=== PATIENT | male | born 1955 | race Caucasian/White ===

== ENCOUNTER → 2017-05-28 | Outpatient (CLI) | payer BC ==
--- NOTE | 2017-05-28 10:01 | US ---
EXAMINATION TYPE: US carotid duplex BILAT DATE OF EXAM: 05/28/2017 COMPARISON: NONE CLINICAL HISTORY: R42 Dizziness. Dizziness and giddiness EXAM MEASUREMENTS: RIGHT: Peak Systolic Velocity (PSV) cm/sec ----- Right CCA: 89.2 ----- Right ICA: 100.5 ----- Right ECA: 103.1 ICA/CCA ratio: 1.1 RIGHT: End Diastole cm/sec ----- Right CCA: 36.1 ----- Right ICA: 47.5 ----- Right ECA: 22.2 LEFT: Peak Systolic Velocity (PSV) cm/sec ----- Left CCA: 101.8 ----- Left ICA: 72.2 ----- Left ECA: 67.8 ICA/CCA ratio: 0.7 LEFT: End Diastole cm/sec ----- Left CCA: 32.3 ----- Left ICA: 32.6 ----- Left ECA: 17.2 VERTEBRALS (direction of flow): Right Vertebral: Antegrade Left Vertebral: Antegrade Rhythm: Normal No elevated velocities, no significant stenosis. Grayscale images show no significant focal plaque. Velocity measurements and ratios in visualized por tion of both internal carotid arteries is felt within normal limits. IMPRESSION: No hemodynamically significant stenosis is seen in either internal carotid artery.
== END | disposition home or self-care (01) ==
LOC: RADUSMAIN 09:21
PROVIDERS: ATTEND Family Medicine
DX: R42 Dizziness and giddiness (principal); R94.31 Abnormal electrocardiogram [ECG] [EKG]
CPT/HCPCS: 93880

== ENCOUNTER → 2017-10-04 | Outpatient (CLI) | payer OTHER ==
--- NOTE | 2017-10-04 10:34 | XR ---
EXAMINATION TYPE: XR Hip Complete LT DATE OF EXAM: 10/04/2017 COMPARISON: NONE HISTORY: 61-year-old male with left hip strain after pushing TECHNIQUE: 2 views FINDINGS: There is minimal superolateral joint space narrowing. No acute fracture, subluxation, or dislocation. Some vague patchy sclerosis involving the greater trochanter may represent superimposition shadow. IMPRESSION: 1. No acute osseous abnormality seen. 2. Questionable patchy sclerosis versus superimposition artifact at the greater trochanter. Conservat arcelia 3 and 6 month follow-up exams are recommended to ensure stability of this region.
== END | disposition home or self-care (01) ==
LOC: RADXRMAIN 10:08
PROVIDERS: ATTEND Emergency Medicine
DX: S39.012D Strain of muscle, fascia and tendon of lower back, subsequent encounter (principal)
CPT/HCPCS: 73502

== ENCOUNTER 2018-03-25 19:18 | Emergency (ER) | payer BC, OTHER ==
--- NOTE | 2018-03-25 21:54 | ED ---
General Adult HPI - General Chief complaint: Extremity Injury, Lower Stated complaint: Leg Pain Time Seen by Provider: 03/25/18 21:18 Source: patient, RN notes reviewed Mode of arrival: ambulatory Limitations: no limitations - History of Present Illness Initial comments: 62-year-old male presents to the emergency department for a chief complaint of right lower extremity pain times one week. Patient states it has been hurting when he has walked on it. Patient denies any injury. Patient denies any history of DVT or clots. Patient is not on any blood thinners. Patient states his toes also feel somewhat numb. The patient denies pain in the hip or knee. Patient has not tried anything for pain. Patient has no other complaints at this time including shortness of breath, chest pain, abdominal pain, nausea or vomiting, headache, or visual changes. - Related Data Home Medications Medication Instructions Recorded Confirmed ALPRAZolam [Xanax] 0.25 mg PO Q8HR PRN 03/25/18 03/25/18 Hydrocodone/Acetaminophen [[place] 1 tab PO Q6H PRN 03/25/18 03/25/18 10-325] Allergies Allergy/AdvReac Type Severity Reaction Status Date / Time Penicillins Allergy Rash/Hives Verified 03/25/18 20:03 Review of Systems ROS Statement: Those systems with pertinent positive or pertinent negative responses have been documented in the HPI. ROS Other: All systems not noted in ROS Statement are negative. Past Medical History Additional Past Medical History / Comment(s): back pain History of Any Multi-Drug Resistant Organisms: None Reported Past Surgical History: No Surgical Hx Reported Past Psychological History: Anxiety Smoking Status: Never smoker Past Alcohol Use History: None Reported Past Drug Use History: None Reported General Exam Limitations: no limitations General appearance: alert, in no apparent distress Head exam: Present: atraumatic, normocephalic, normal inspection Eye exam: Present: normal appearance. Absent: scleral icterus, conjunctival injection ENT exam: Present: normal exam, mucous membranes moist Neck exam: Present: normal inspection, full ROM. Absent: tenderness, meningismus, lymphadenopathy Respiratory exam: Present: normal lung sounds bilaterally. Absent: respiratory distress, wheezes, rales, rhonchi, stridor Cardiovascular Exam: Present: regular rate, normal rhythm, normal heart sounds. Absent: systolic murmur, diastolic murmur, rubs, gallop, clicks Extremities exam: Present: full ROM (Full range of motion of the left lower extremity including the toes ankle and knee joint), tenderness (Tenderness to the calf over what appears to be of a varicose vein about once an meter by 1 cm. ), normal capillary refill (Capillary refill less than 2 seconds and pedal pulse 2+ in lower extremities bilaterally), calf tenderness (Tenderness over the 1 cm x 1 cm fluctuant raised area that is likely a varicose vein. No erythema, swelling, or increased warmth in the right calf.). Absent: pedal edema, joint swelling Neurological exam: Present: alert, oriented X3, CN II-XII intact Psychiatric exam: Present: normal affect, normal mood Course Vital Signs 03/25/18 20:00 Temperature 98.6 F Pulse Rate 60 Respiratory 20 Rate Blood Pressure 132/56 O2 Sat by Pulse 97 Oximetry Medical Decision Making - Medical Decision Making 62-year-old male presents to the emergency department for a chief complaint of right calf pain times one week. Patient states it is painful to walk on. Patient states his toes are somewhat numb. Patient denies pain in the right hip. Neurovascular intact in the right lower extremity. Right leg negative for DVT on ultrasound. X-ray of the tib-fib shows no fracture or dislocation. Patient is ambulatory in the emergency department. Patient may have a varicose vein that is palpated. Patient will follow up with primary care in 1-2 days. He will return to the emergency department if he has any worsening symptoms. He will take Motrin or Tylenol for pain. Disposition Clinical Impression: Leg pain, left, Varicose vein of leg Disposition: HOME SELF-CARE Condition: Good Additional Instructions: Please take Motrin and Tylenol for pain. Please follow-up with primary care in 1-2 days. If you have any worsening symptoms, be sure to return to the emergency department. Is patient prescribed a controlled substance at d/c from ED?: No Referrals: Abraham Younger MD [Primary Care Provider] - 1-2 days Time of Disposition: 23:43
--- NOTE | 2018-03-25 22:22 | US ---
EXAMINATION TYPE: US venous doppler duplex LE RT DATE OF EXAM: 03/25/2018 9:31 PM COMPARISON: NONE CLINICAL HISTORY: Pain. right calf pain SIDE PERFORMED: Right TECHNIQUE: The lower extremity deep venous system is examined utilizing real time linear array sonog dario with graded compression, doppler sonography and color-flow sonography. VESSELS IMAGED: External Iliac Vein (EIV) Common Femoral Vein Deep Femoral Vein Greater Saphenous Vein * Femoral Vein Popliteal Vein Proximal Calf Veins (* superficial vessels) Right Leg: Negative for DVT IMPRESSION: Normal exam. No evidence of deep venous thrombosis in the right leg.
--- NOTE | 2018-03-25 23:08 | XR ---
EXAMINATION TYPE: XR tibia fibula RT DATE OF EXAM: 03/25/2018 COMPARISON: NONE HISTORY: Pain TECHNIQUE: 4 views FINDINGS: The tibia and fibula appear intact. Knee joint and ankle joint appear intact. I see no frac ture. IMPRESSION: Negative right tibia and fibula exam.
[2018-03-26] VITALS: BP 127/80; PULSE 50; RESP 19; TEMP 97.1
== END 2018-03-25 23:59 | disposition home or self-care (01) ==
LOC: EC 19:18
DX: I83.811 Varicose veins of right lower extremity with pain (principal); I83.891 Varicose veins of right lower extremity with other complications; Z88.0 Allergy status to penicillin
CPT/HCPCS: 99284

== ENCOUNTER 2020-10-22 09:14 | Emergency (ER) | payer BC, OTHER ==
[2020-10-22 09:26] VITALS: RESP 18
[2020-10-22] MEDS ORDERED: METOCLOPRAMIDE 5 MG/ML 2 ML VIAL IVP STA (10:04)
[2020-10-22] MEDS ORDERED: ACETAMINOPHEN TAB 325 MG TAB PO STA (10:04)
[2020-10-22] MEDS ORDERED: SODIUM CHLORIDE 0.9% 1,000 ML IV STA (10:04)
--- NOTE | 2020-10-22 10:09 | ED ---
General Adult HPI - General Chief complaint: Headache Stated complaint: Headache Time Seen by Provider: 10/22/20 09:45 Source: patient, family, RN notes reviewed Mode of arrival: ambulatory Limitations: no limitations - History of Present Illness Initial comments: Patient is a pleasant 64-year-old male presenting to the emergency Department with complaints of headache. Symptoms have been waxing and waning over the past several days. Patient did have temperature up to 100. Patient also has some mild discomfort of his neck. Headache is mostly left-sided. Patient has had some intermittent symptoms over the past year since striking his head at that time. No vomiting. No weakness or confusion. Patient has some discomfort of his left ear as well. - Related Data Home Medications Medication Instructions Recorded Confirmed Hydrocodone/Acetaminophen [[place] 1 tab PO TID PRN 03/25/18 10/22/20 10-325] ALPRAZolam [Xanax] 0.5 mg PO BID PRN 10/22/20 10/22/20 Omeprazole 20 mg PO DAILY PRN 10/22/20 10/22/20 Ondansetron Odt [Zofran Odt] 8 mg PO Q8HR PRN 10/22/20 10/22/20 diazePAM [Valium] 2.5 mg PO DAILY PRN 10/22/20 10/22/20 Allergies Allergy/AdvReac Type Severity Reaction Status Date / Time Penicillins Allergy Rash/Hives Verified 10/22/20 10:13 Review of Systems ROS Statement: Those systems with pertinent positive or pertinent negative responses have been documented in the HPI. ROS Other: All systems not noted in ROS Statement are negative. Constitutional: Reports: as per HPI Eyes: Denies: eye pain ENT: Reports: as per HPI, ear pain Respiratory: Denies: cough Cardiovascular: Denies: chest pain Endocrine: Denies: fatigue Gastrointestinal: Denies: abdominal pain Genitourinary: Denies: dysuria Musculoskeletal: Denies: back pain Skin: Denies: rash Neurological: Reports: as per HPI, headache. Denies: weakness Past Medical History Additional Past Medical History / Comment(s): back pain History of Any Multi-Drug Resistant Organisms: None Reported Past Surgical History: No Surgical Hx Reported Past Psychological History: Anxiety Smoking Status: Never smoker Past Alcohol Use History: None Reported Past Drug Use History: None Reported General Exam Limitations: no limitations General appearance: alert, in no apparent distress Head exam: Present: atraumatic, normocephalic, other (No tenderness over the temporal artery) Eye exam: Present: normal appearance, PERRL, EOMI. Absent: nystagmus ENT exam: Present: normal oropharynx Neck exam: Present: normal inspection. Absent: tenderness, meningismus Respiratory exam: Present: normal lung sounds bilaterally Cardiovascular Exam: Present: regular rate, normal rhythm GI/Abdominal exam: Present: soft. Absent: tenderness Extremities exam: Present: normal inspection Neurological exam: Present: alert, CN II-XII intact. Absent: motor sensory deficit Expanded Neurological exam: Present: protecting the airway Speech: Present: fluid speech Cranial nerves: EOM's Intact: Normal, Facial Sensation: Normal Sensory exam: Upper Extremity Light Touch: Normal, Lower Extremity Light Touch: Normal Motor strength exam: RUE: 5, LUE: 5, RLE: 5, LLE: 5 Eye Response: (4) open spontaneously Motor Response: (6) obeys commands Verbal Response: (5) oriented Psychiatric exam: Present: normal affect, normal mood Skin exam: Present: normal color Course Vital Signs 10/22/20 10/22/20 09:22 11:11 Temperature 97.6 F 97.3 F L Pulse Rate 77 66 Respiratory 18 18 Rate Blood Pressure 125/82 102/77 O2 Sat by Pulse 97 100 Oximetry Medical Decision Making - Medical Decision Making Patient reevaluated and improved. Patient updated on results. Patient is felt to be low suspicion for meningitis clinically however with complaints was offered lumbar puncture to further evaluate this. Patient refuses. Family is present. Patient states he was just prescribed Keflex yesterday however has not had this filled yet. Patient does have sinus complaints. Secondary to just being prescribed antibiotics yesterday for the prescription will be held at this time and patient is advised to have that prescription filled today and take that medication. Also advised follow-up and return if worsened symptoms or - Lab Data Result diagrams: 10/22/20 10:16 10/22/20 10:16 Lab Results 10/22/20 10/22/20 10/22/20 Range/Units 10:13 10:16 10:16 WBC 8.6 (3.8-10.6) k/uL RBC 5.25 (4.30-5.90) m/uL Hgb 16.2 (13.0-17.5) gm/dL Hct 47.5 (39.0-53.0) % MCV 90.5 (80.0-100.0) fL MCH 30.9 (25.0-35.0) pg MCHC 34.2 (31.0-37.0) g/dL RDW 12.7 (11.5-15.5) % Plt Count 205 (150-450) k/uL MPV 7.3 Neutrophils % 63 % Lymphocytes % 28 % Monocytes % 5 % Eosinophils % 1 % Basophils % 1 % Neutrophils # 5.4 (1.3-7.7) k/uL Lymphocytes # 2.4 (1.0-4.8) k/uL Monocytes # 0.5 (0-1.0) k/uL Eosinophils # 0.1 (0-0.7) k/uL Basophils # 0.1 (0-0.2) k/uL PT 10.2 (9.0-12.0) sec INR 0.9 (<1.2) APTT 22.6 (22.0-30.0) sec Sodium (137-145) mmol/L Potassium (3.5-5.1) mmol/L Chloride (98-107) mmol/L Carbon Dioxide (22-30) mmol/L Anion Gap mmol/L BUN (9-20) mg/dL Creatinine (0.66-1.25) mg/dL Est GFR (CKD-EPI)AfAm (>60 ml/min/1.73 sqM) Est GFR (CKD-EPI)NonAf (>60 ml/min/1.73 sqM) Glucose (74-99) mg/dL Calcium (8.4-10.2) mg/dL Total Bilirubin (0.2-1.3) mg/dL AST (17-59) U/L ALT (4-49) U/L Alkaline Phosphatase (38-126) U/L Total Protein (6.3-8.2) g/dL Albumin (3.5-5.0) g/dL Urine Color Light Yellow Urine Appearance Clear (Clear) Urine pH 5.5 (5.0-8.0) Ur Specific [place] 1.008 (1.001-1.035) Urine Protein Negative (Negative) Urine Glucose (UA) Negative (Negative) Urine Ketones Negative (Negative) Urine Blood Negative (Negative) Urine Nitrite Negative (Negative) Urine Bilirubin Negative (Negative) Urine Urobilinogen <2.0 (<2.0) mg/dL Ur Leukocyte Esterase Negative (Negative) Coronavirus (PCR) (Not Detectd) 10/22/20 10/22/20 Range/Units 10:16 10:21 WBC (3.8-10.6) k/uL RBC (4.30-5.90) m/uL Hgb (13.0-17.5) gm/dL Hct (39.0-53.0) % MCV (80.0-100.0) fL MCH (25.0-35.0) pg MCHC (31.0-37.0) g/dL RDW (11.5-15.5) % Plt Count (150-450) k/uL MPV Neutrophils % % Lymphocytes % % Monocytes % % Eosinophils % % Basophils % % Neutrophils # (1.3-7.7) k/uL Lymphocytes # (1.0-4.8) k/uL Monocytes # (0-1.0) k/uL Eosinophils # (0-0.7) k/uL Basophils # (0-0.2) k/uL PT (9.0-12.0) sec INR (<1.2) APTT (22.0-30.0) sec Sodium 139 (137-145) mmol/L Potassium 4.4 (3.5-5.1) mmol/L Chloride 101 (98-107) mmol/L Carbon Dioxide 30 (22-30) mmol/L Anion Gap 8 mmol/L BUN 12 (9-20) mg/dL Creatinine 0.74 (0.66-1.25) mg/dL Est GFR (CKD-EPI)AfAm >90 (>60 ml/min/1.73 sqM) Est GFR (CKD-EPI)NonAf >90 (>60 ml/min/1.73 sqM) Glucose 101 H (74-99) mg/dL Calcium 9.4 (8.4-10.2) mg/dL Total Bilirubin 0.6 (0.2-1.3) mg/dL AST 23 (17-59) U/L ALT 22 (4-49) U/L Alkaline Phosphatase 39 (38-126) U/L Total Protein 7.4 (6.3-8.2) g/dL Albumin 4.5 (3.5-5.0) g/dL Urine Color Urine Appearance (Clear) Urine pH (5.0-8.0) Ur Specific [place] (1.001-1.035) Urine Protein (Negative) Urine Glucose (UA) (Negative) Urine Ketones (Negative) Urine Blood (Negative) Urine Nitrite (Negative) Urine Bilirubin (Negative) Urine Urobilinogen (<2.0) mg/dL Ur Leukocyte Esterase (Negative) Coronavirus (PCR) Not Detected (Not Detectd) - Radiology Data Radiology results: report reviewed (Computed tomography scan of the brain reveals no acute process. There is ethmoid sinus disease) Disposition Clinical Impression: Headache Disposition: HOME SELF-CARE Condition: Stable Instructions (If sedation given, give patient instructions): Acute Headache (ED) Additional Instructions: Please do follow-up with your primary care physician in the next day or 2 for recheck. Return for fevers, increased pain, neck pain, confusion, weakness, worsening or change in symptoms or any other concerns. Start antibiotics today. Is patient prescribed a controlled substance at d/c from ED?: No Referrals: Abraham Younger MD [Primary Care Provider] - 1-2 days Time of Disposition: 11:23
[2020-10-22 10:38] LABS: Appearance,Urine Clear (Clear); Bilirubin,Urine Negative (Negative); Blood,Urine Negative (Negative); Color,Urine Light Yellow; Glucose,Urine (UA) Negative (Negative); Ketones,Urine Negative (Negative); Leukocyte Esterase,Urine Negative (Negative); Nitrite,Urine Negative (Negative); PH, Urine 5.5 (5.0-8.0); Protein,Urine Negative (Negative); Specific Gravity,Urine 1.008 (1.001-1.035); Urobilinogen,Urine <2.0 mg/dL (<2.0)
[2020-10-22 10:50] LABS: INR 0.9 (<1.2); Partial Thromboplastin Time 22.6 sec (22.0-30.0); Prothrombin Time 10.2 sec (9.0-12.0)
[2020-10-22 10:51] LABS: ALT 22 U/L (4-49); AST 23 U/L (17-59); African American GFR (CKD) >90 (>60 ml/min/1.73 sqM); Albumin 4.5 g/dL (3.5-5.0); Alkaline Phosphatase 39 U/L (38-126); Anion Gap 8 mmol/L; Blood Urea Nitrogen 12 mg/dL (9-20); Calcium 9.4 mg/dL (8.4-10.2); Carbon Dioxide 30 mmol/L (22-30); Chloride 101 mmol/L (98-107); Glucose 101 mg/dL (74-99); Non-African American GFR(CKD) >90 (>60 ml/min/1.73 sqM); Potassium 4.4 mmol/L (3.5-5.1); Sodium 139 mmol/L (137-145); Total Bilirubin 0.6 mg/dL (0.2-1.3); Total Protein 7.4 g/dL (6.3-8.2)
--- NOTE | 2020-10-22 11:08 | CT ---
EXAMINATION TYPE: CT brain wo con DATE OF EXAM: 10/22/2020 COMPARISON: None HISTORY: 64-year-old male headache TECHNIQUE: Examination was done in axial plane without intravenous contrast. Coronal and sagittal r econstructions performed. CT DLP: 1121.4 mGycm Automated exposure control for dose reduction was used. FINDINGS: There is no evidence of acute intracranial hemorrhage, acute ischemic changes, mass, mass-effect, or extra-axial fluid collection. There is no effacement of cerebral sulci or basal subarachnoid cister ns. There is no hydrocephalus. There is no midline shift. Moreno-white matter distinction is preserv ed. Moderate mucosal thickening within the ethmoid air cells. Orbits and globes are intact. Mastoid air c ells well pneumatized. IMPRESSION: Moderate chronic ethmoid sinus disease. No acute intracranial abnormality seen.
[2020-10-22 11:11] LABS: Basophils # (A) 0.1 k/uL (0-0.2); Basophils % (A) 1 %; Eosinophils # (A) 0.1 k/uL (0-0.7); Eosinophils % (A) 1 %; HCT 47.5 % (39.0-53.0); HGB 16.2 gm/dL (13.0-17.5); Lymphocytes # (A) 2.4 k/uL (1.0-4.8); Lymphocytes % (A) 28 %; MCH 30.9 pg (25.0-35.0); MCHC 34.2 g/dL (31.0-37.0); MCV 90.5 fL (80.0-100.0); Mean Platelet Volume 7.3; Monocytes # (A) 0.5 k/uL (0-1.0); Monocytes % (A) 5 %; Neutrophils # (A) 5.4 k/uL (1.3-7.7); Neutrophils % (A) 63 %; Platelet Count 205 k/uL (150-450); RBC 5.25 m/uL (4.30-5.90); RDW 12.7 % (11.5-15.5); WBC 8.6 k/uL (3.8-10.6)
[2020-10-22 11:14] VITALS: BP 102/77; PULSE 66; TEMP 97.3
== END 2020-10-22 11:32 | disposition home or self-care (01) ==
LOC: EC 09:14
DX: R51.9 Headache, unspecified (principal); F41.9 Anxiety disorder, unspecified
CPT/HCPCS: 36415; 80053; 85025; 85610; 85730; 81003; 87635; 70450; 99284; 96374; 96361; J2765

== ENCOUNTER 2021-04-07 09:55 | Emergency (ER) | payer BC, OTHER ==
[2021-04-07 10:07] VITALS: BP 128/79; PULSE 76; RESP 18; TEMP 97.8
[2021-04-07] MEDS ORDERED: SODIUM CHLORIDE 0.9% 1,000 ML IV STA (10:20)
[2021-04-07 11:41] LABS: Appearance,Urine Clear (Clear); Basophils # (A) 0.1 k/uL (0-0.2); Basophils % (A) 1 %; Bilirubin,Urine Negative (Negative); Blood,Urine Negative (Negative); Color,Urine Light Yellow; Eosinophils # (A) 0.2 k/uL (0-0.7); Eosinophils % (A) 3 %; Glucose,Urine (UA) Negative (Negative); HCT 47.9 % (39.0-53.0); Ketones,Urine Negative (Negative); Leukocyte Esterase,Urine Negative (Negative); Lymphocytes # (A) 2.1 k/uL (1.0-4.8); Lymphocytes % (A) 33 %; MCH 30.8 pg (25.0-35.0); MCHC 33.3 g/dL (31.0-37.0); MCV 92.4 fL (80.0-100.0); Mean Platelet Volume 7.2; Monocytes # (A) 0.4 k/uL (0-1.0); Monocytes % (A) 5 %; Neutrophils # (A) 3.6 k/uL (1.3-7.7); Neutrophils % (A) 56 %; Nitrite,Urine Negative (Negative); PH, Urine 6.5 (5.0-8.0); Platelet Count 202 k/uL (150-450); Protein,Urine Negative (Negative); RBC 5.18 m/uL (4.30-5.90); RDW 13.4 % (11.5-15.5); Specific Gravity,Urine 1.005 (1.001-1.035); Urobilinogen,Urine <2.0 mg/dL (<2.0); WBC 6.5 k/uL (3.8-10.6)
[2021-04-07 11:51] LABS: ALT 17 U/L (4-49); AST 24 U/L (17-59); African American GFR (CKD) >90 (>60 ml/min/1.73 sqM); Alkaline Phosphatase 43 U/L (38-126); Anion Gap 7 mmol/L; Blood Urea Nitrogen 14 mg/dL (9-20); Calcium 9.4 mg/dL (8.4-10.2); Carbon Dioxide 28 mmol/L (22-30); Chloride 105 mmol/L (98-107); Glucose 93 mg/dL (74-99); Magnesium 2.1 mg/dL (1.6-2.3); Non-African American GFR(CKD) >90 (>60 ml/min/1.73 sqM); Potassium 4.5 mmol/L (3.5-5.1); Sodium 140 mmol/L (137-145); Total Bilirubin 0.2 mg/dL (0.2-1.3); Total Protein 6.5 g/dL (6.3-8.2)
--- NOTE | 2021-04-07 11:55 | XR ---
EXAMINATION TYPE: XR chest 2V DATE OF EXAM: 04/07/2021 COMPARISON: NONE HISTORY: Shortness of breath TECHNIQUE: Frontal and lateral views of the chest are obtained. FINDINGS: Scattered senescent parenchymal changes noted. Hyperinflation compatible with COPD. No evidence for infiltrate. No evidence for atelectasis. Heart size is stable. Mediastinal structures are stable and grossly unremarkable. No evidence for hilar prominence. Degenerative changes dorsal spine. IMPRESSION: 1. No evidence for acute pulmonary disease.
--- NOTE | 2021-04-07 12:09 | ED ---
General Adult HPI - General Chief complaint: Weakness Stated complaint: Dehydration Time Seen by Provider: 04/07/21 10:10 Source: patient, RN notes reviewed Mode of arrival: ambulatory Limitations: no limitations - History of Present Illness Initial comments: Patient is a 65-year-old male that presents to emergency, complaining of generalized weakness. He notes that he was diagnosed with heat stroke last week by his primary care. He was informed that things don't get better in approximately a week to come emergency room to get evaluated and/or IV fluids. Patient states it is minimally down but it just feels more lethargic and tired. He denied any pain or injury. He was otherwise a well-appearing 65-year-old male. He denied any chest pain shortness of breath headache nausea vomiting diarrhea constipation fever fatigue chills. - Related Data Home Medications Medication Instructions Recorded Confirmed Hydrocodone/Acetaminophen [[place] 1 tab PO TID PRN 03/25/18 04/07/21 10-325] ALPRAZolam [Xanax] 0.5 mg PO BID PRN 10/22/20 04/07/21 Ondansetron Odt [Zofran Odt] 8 mg PO Q8HR PRN 10/22/20 04/07/21 Acyclovir [Zovirax] 800 mg PO 5XD 04/07/21 04/07/21 Diazepam [Valium] 5 mg PO HS PRN 04/07/21 04/07/21 Ergocalciferol (Vitamin D2) 1,250 mcg PO WEEKLY 04/07/21 04/07/21 [Drisdol (50,000 Iu)] Omeprazole [PriLOSEC] 40 mg PO DAILY 04/07/21 04/07/21 Ztlido 1.8% Patch 1 patch TOPICAL DAILY PRN 04/07/21 04/07/21 Allergies Allergy/AdvReac Type Severity Reaction Status Date / Time Penicillins Allergy Rash/Hives Verified 04/07/21 11:20 Review of Systems ROS Statement: Those systems with pertinent positive or pertinent negative responses have been documented in the HPI. ROS Other: All systems not noted in ROS Statement are negative. Past Medical History Additional Past Medical History / Comment(s): back pain History of Any Multi-Drug Resistant Organisms: None Reported Past Surgical History: No Surgical Hx Reported Past Psychological History: Anxiety Smoking Status: Never smoker Past Alcohol Use History: None Reported Past Drug Use History: None Reported General Exam Limitations: no limitations General appearance: alert, in no apparent distress Head exam: Present: atraumatic, normocephalic, normal inspection Eye exam: Present: normal appearance, PERRL, EOMI. Absent: scleral icterus, conjunctival injection, periorbital swelling Neck exam: Present: normal inspection Respiratory exam: Present: normal lung sounds bilaterally. Absent: respiratory distress, wheezes, rales, rhonchi, stridor Cardiovascular Exam: Present: regular rate, normal rhythm, normal heart sounds. Absent: systolic murmur, diastolic murmur, rubs, gallop, clicks GI/Abdominal exam: Present: soft, normal bowel sounds. Absent: distended, tenderness, guarding, rebound, rigid Extremities exam: Present: normal inspection, full ROM, normal capillary refill. Absent: tenderness, pedal edema, joint swelling, calf tenderness Neurological exam: Present: alert, oriented X3 Psychiatric exam: Present: normal affect, normal mood Skin exam: Present: warm, dry, intact, normal color. Absent: rash Course Vital Signs 04/07/21 10:03 Temperature 97.8 F Pulse Rate 76 Respiratory 18 Rate Blood Pressure 128/79 O2 Sat by Pulse 98 Oximetry EKG Findings - EKG Comments: EKG Findings:: Ventricular rate 62 bpm, MA interval 180 ms, QRS duration 96 ms, QTC 391 ms, PRT axes 48/32/39. Normal sinus rhythm with sinus arrhythmia. Normal ECG. Medical Decision Making - Medical Decision Making 65-year-old male complaining of generalized weakness after being diagnosed heat stroke approximately 1 week ago. Saying that he does not feel he is improving much. Labs, chest x-ray, EKG, teletypesetter monitor, 1 L normal saline ordered. Labs unremarkable. EKG within normal limits. Chest x-ray negative for any acute process. Case discussed with Dr. Strickland, patient can discharge home. - Lab Data Result diagrams: 04/07/21 11:27 04/07/21 11:27 Lab Results 04/07/21 04/07/21 04/07/21 Range/Units 11:27 11:27 11:27 WBC 6.5 (3.8-10.6) k/uL RBC 5.18 (4.30-5.90) m/uL Hgb 16.0 (13.0-17.5) gm/dL Hct 47.9 (39.0-53.0) % MCV 92.4 (80.0-100.0) fL MCH 30.8 (25.0-35.0) pg MCHC 33.3 (31.0-37.0) g/dL RDW 13.4 (11.5-15.5) % Plt Count 202 (150-450) k/uL MPV 7.2 Neutrophils % 56 % Lymphocytes % 33 % Monocytes % 5 % Eosinophils % 3 % Basophils % 1 % Neutrophils # 3.6 (1.3-7.7) k/uL Lymphocytes # 2.1 (1.0-4.8) k/uL Monocytes # 0.4 (0-1.0) k/uL Eosinophils # 0.2 (0-0.7) k/uL Basophils # 0.1 (0-0.2) k/uL PT 9.9 (9.0-12.0) sec INR 0.9 (<1.2) APTT 22.5 (22.0-30.0) sec Sodium (137-145) mmol/L Potassium (3.5-5.1) mmol/L Chloride (98-107) mmol/L Carbon Dioxide (22-30) mmol/L Anion Gap mmol/L BUN (9-20) mg/dL Creatinine (0.66-1.25) mg/dL Est GFR (CKD-EPI)AfAm (>60 ml/min/1.73 sqM) Est GFR (CKD-EPI)NonAf (>60 ml/min/1.73 sqM) Glucose (74-99) mg/dL Plasma Lactic Acid Rip (0.7-2.0) mmol/L Calcium (8.4-10.2) mg/dL Magnesium (1.6-2.3) mg/dL Total Bilirubin (0.2-1.3) mg/dL AST (17-59) U/L ALT (4-49) U/L Alkaline Phosphatase (38-126) U/L Troponin I (0.000-0.034) ng/mL Total Protein (6.3-8.2) g/dL Albumin (3.5-5.0) g/dL Urine Color Light Yellow Urine Appearance Clear (Clear) Urine pH 6.5 (5.0-8.0) Ur Specific [place] 1.005 (1.001-1.035) Urine Protein Negative (Negative) Urine Glucose (UA) Negative (Negative) Urine Ketones Negative (Negative) Urine Blood Negative (Negative) Urine Nitrite Negative (Negative) Urine Bilirubin Negative (Negative) Urine Urobilinogen <2.0 (<2.0) mg/dL Ur Leukocyte Esterase Negative (Negative) 04/07/21 04/07/21 04/07/21 Range/Units 11:27 11:27 11:27 WBC (3.8-10.6) k/uL RBC (4.30-5.90) m/uL Hgb (13.0-17.5) gm/dL Hct (39.0-53.0) % MCV (80.0-100.0) fL MCH (25.0-35.0) pg MCHC (31.0-37.0) g/dL RDW (11.5-15.5) % Plt Count (150-450) k/uL MPV Neutrophils % % Lymphocytes % % Monocytes % % Eosinophils % % Basophils % % Neutrophils # (1.3-7.7) k/uL Lymphocytes # (1.0-4.8) k/uL Monocytes # (0-1.0) k/uL Eosinophils # (0-0.7) k/uL Basophils # (0-0.2) k/uL PT (9.0-12.0) sec INR (<1.2) APTT (22.0-30.0) sec Sodium 140 (137-145) mmol/L Potassium 4.5 (3.5-5.1) mmol/L Chloride 105 (98-107) mmol/L Carbon Dioxide 28 (22-30) mmol/L Anion Gap 7 mmol/L BUN 14 (9-20) mg/dL Creatinine 0.70 (0.66-1.25) mg/dL Est GFR (CKD-EPI)AfAm >90 (>60 ml/min/1.73 sqM) Est GFR (CKD-EPI)NonAf >90 (>60 ml/min/1.73 sqM) Glucose 93 (74-99) mg/dL Plasma Lactic Acid Rip 1.1 (0.7-2.0) mmol/L Calcium 9.4 (8.4-10.2) mg/dL Magnesium 2.1 (1.6-2.3) mg/dL Total Bilirubin 0.2 (0.2-1.3) mg/dL AST 24 (17-59) U/L ALT 17 (4-49) U/L Alkaline Phosphatase 43 (38-126) U/L Troponin I <0.012 (0.000-0.034) ng/mL Total Protein 6.5 (6.3-8.2) g/dL Albumin 4.0 (3.5-5.0) g/dL Urine Color Urine Appearance (Clear) Urine pH (5.0-8.0) Ur Specific [place] (1.001-1.035) Urine Protein (Negative) Urine Glucose (UA) (Negative) Urine Ketones (Negative) Urine Blood (Negative) Urine Nitrite (Negative) Urine Bilirubin (Negative) Urine Urobilinogen (<2.0) mg/dL Ur Leukocyte Esterase (Negative) - EKG Data -: EKG Interpreted by Ca EKG shows normal: sinus rhythm Rate: normal EKG Comments: Ventricular rate 62 bpm, MA interval 180 ms, QRS duration 96 ms, QTC 391 ms, PRT axes 48/32/39. Normal sinus rhythm with sinus arrhythmia. Normal ECG. - Radiology Data Radiology results: report reviewed, image reviewed Chest x-ray: No evidence for acute pulmonary disease. Disposition Clinical Impression: Weakness, Dehydration Disposition: HOME SELF-CARE Condition: Stable Instructions (If sedation given, give patient instructions): Dehydration (ED) Additional Instructions: Please return to the Emergency Department if symptoms worsen or any other concerns. Follow-up with primary care in 1-2 days. Increase oral fluids. Get plenty rest. Is patient prescribed a controlled substance at d/c from ED?: No Referrals: Abraham Younger MD [Primary Care Provider] - 1-2 days Time of Disposition: 12:42
[2021-04-07 12:19] LABS: INR 0.9 (<1.2); Partial Thromboplastin Time 22.5 sec (22.0-30.0); Prothrombin Time 9.9 sec (9.0-12.0)
== END 2021-04-07 13:06 | disposition home or self-care (01) ==
LOC: EC 09:55
DX: R53.1 Weakness (principal); E86.0 Dehydration; R53.83 Other fatigue; Z88.0 Allergy status to penicillin
CPT/HCPCS: 36415; 71046; 80053; 81003; 83605; 83735; 84484; 85025; 85610; 85730; 93005; 96360; 99285

== ENCOUNTER → 2021-04-25 | Outpatient (CLI) | payer BC, OTHER ==
--- NOTE | 2021-04-25 11:32 | US ---
EXAMINATION TYPE: US venous doppler duplex LE RT DATE OF EXAM: 04/25/2021 10:57 AM COMPARISON: NONE CLINICAL HISTORY: R60.0 LOCALIZED EDEMA. pain and edema right leg SIDE PERFORMED: right TECHNIQUE: The lower extremity deep venous system is examined utilizing real time linear array sonog dario with graded compression, doppler sonography and color-flow sonography. VESSELS IMAGED: Common Femoral Vein Deep Femoral Vein Greater Saphenous Vein * Femoral Vein Popliteal Vein Small Saphenous Vein * Proximal Calf Veins (* superficial vessels) Right Leg: no evidence of DVT IMPRESSION: 1. Right lower extremity ultrasound negative for deep venous thrombosis.
== END | disposition home or self-care (01) ==
LOC: RADUSWWP 10:06
PROVIDERS: ATTEND Family Medicine
DX: M79.604 Pain in right leg (principal); R60.0 Localized edema

== ENCOUNTER 2022-05-28 05:58 | Emergency (ER) | payer BC, OTHER ==
[2022-05-28 06:02] VITALS: TEMP 98
[2022-05-28] MEDS ORDERED: METOCLOPRAMIDE 5 MG/ML 2 ML VIAL IVP STA (06:09)
[2022-05-28] MEDS ORDERED: SODIUM CHLORIDE 0.9% 500 ML 500 ML IV STA (06:09)
[2022-05-28] MEDS ORDERED: SODIUM CHLORIDE 0.9% 1,000 ML IV STA (06:09)
[2022-05-28 06:38] LABS: Appearance,Urine Clear (Clear); Basophils % (A) 1 %; Bilirubin,Urine Negative (Negative); Blood,Urine Negative (Negative); Color,Urine Yellow; Eosinophils # (A) 0.1 k/uL (0-0.7); Eosinophils % (A) 1 %; Glucose,Urine (UA) Negative (Negative); HCT 45.3 % (39.0-53.0); HGB 15.1 gm/dL (13.0-17.5); Ketones,Urine 1+ (Negative); Leukocyte Esterase,Urine Negative (Negative); Lymphocytes # (A) 1.7 k/uL (1.0-4.8); Lymphocytes % (A) 21 %; MCH 29.5 pg (25.0-35.0); MCHC 33.2 g/dL (31.0-37.0); MCV 88.7 fL (80.0-100.0); Mean Platelet Volume 7.8; Monocytes # (A) 0.5 k/uL (0-1.0); Monocytes % (A) 6 %; Neutrophils # (A) 5.9 k/uL (1.3-7.7); Neutrophils % (A) 71 %; Nitrite,Urine Negative (Negative); Platelet Count 221 k/uL (150-450); Protein,Urine Trace (Negative); RBC 5.11 m/uL (4.30-5.90); RDW 12.7 % (11.5-15.5); Urobilinogen,Urine <2.0 mg/dL (<2.0); WBC 8.3 k/uL (3.8-10.6)
[2022-05-28] MEDS ORDERED: diphenhydrAMINE 50 MG/ML 1 ML VIAL IVP STA (06:41)
[2022-05-28] MEDS ORDERED: KETOROLAC 15 MG/ML 1 ML VIAL IVP STA (06:41)
[2022-05-28 06:49] LABS: ALT 22 U/L (4-49); AST 26 U/L (17-59); African American GFR (CKD) >90 (>60 ml/min/1.73 sqM); Albumin 4.6 g/dL (3.5-5.0); Alkaline Phosphatase 64 U/L (38-126); Anion Gap 12 mmol/L; Blood Urea Nitrogen 11 mg/dL (9-20); Calcium 9.1 mg/dL (8.4-10.2); Carbon Dioxide 23 mmol/L (22-30); Chloride 102 mmol/L (98-107); Glucose 134 mg/dL (74-99); Lipase 80 U/L (23-300); Non-African American GFR(CKD) >90 (>60 ml/min/1.73 sqM); Potassium 3.7 mmol/L (3.5-5.1); Sodium 137 mmol/L (137-145); Total Bilirubin 0.9 mg/dL (0.2-1.3)
--- NOTE | 2022-05-28 06:58 | XR ---
EXAMINATION TYPE: XR KUB DATE OF EXAM: 05/28/2022 COMPARISON: CT abdomen pelvis 12/09/2012. HISTORY: Pain, consultation TECHNIQUE: Single upright KUB view of the abdomen is obtained with 2 radiographs. FINDINGS: Small bowel demonstrates no evidence for dilatation or air fluid levels. Moderate amount of gas and fecal material demonstrated within the colon. No convincing evidence for pneumoperitoneum. No unusual calcifications. The lung bases are clear. The osseous structures are intact. IMPRESSION: Overall nonobstructive bowel gas pattern with moderate colonic stool burden.
[2022-05-28 07:50] VITALS: PULSE 72; RESP 18
[2022-05-28] MEDS ORDERED: MAGNESIUM CITRATE 296 ML BOTTLE PO ONE (07:50)
--- NOTE | 2022-05-28 07:50 | ED ---
General Adult HPI - General Chief complaint: Nausea/Vomiting/Diarrhea Stated complaint: Nausea Time Seen by Provider: 05/28/22 06:07 Source: patient, RN notes reviewed Mode of arrival: ambulatory Limitations: no limitations - History of Present Illness Initial comments: 66-year-old male presents emergency Department chief complaint of constipation, nausea and vomiting. Patient states he just started on Suboxone after being on [place] for several years. Patient states she was doing well and Suboxone initially but the last few days he's developed constipation, nausea vomiting no localized abdominal pain states she's had subjective fever, body aches and chills mild cough. Patient denies any sick contacts denies any dysuria. - Related Data Home Medications Medication Instructions Recorded Confirmed Hydrocodone/Acetaminophen [[place] 1 tab PO TID PRN 03/25/18 04/07/21 10-325] ALPRAZolam [Xanax] 0.5 mg PO BID PRN 10/22/20 04/07/21 Ondansetron Odt [Zofran Odt] 8 mg PO Q8HR PRN 10/22/20 04/07/21 Acyclovir [Zovirax] 800 mg PO 5XD 04/07/21 04/07/21 Ergocalciferol (Vitamin D2) 1,250 mcg PO WEEKLY 04/07/21 04/07/21 [Drisdol (50,000 Iu)] Omeprazole [PriLOSEC] 40 mg PO DAILY 04/07/21 04/07/21 Ztlido 1.8% Patch 1 patch TOPICAL DAILY PRN 04/07/21 04/07/21 diazePAM [Valium] 5 mg PO HS PRN 04/07/21 04/07/21 Allergies Allergy/AdvReac Type Severity Reaction Status Date / Time Penicillins Allergy Rash/Hives Verified 05/28/22 05:59 Review of Systems ROS Statement: Those systems with pertinent positive or pertinent negative responses have been documented in the HPI. ROS Other: All systems not noted in ROS Statement are negative. Past Medical History Additional Past Medical History / Comment(s): back pain History of Any Multi-Drug Resistant Organisms: None Reported Past Surgical History: No Surgical Hx Reported Past Psychological History: Anxiety Smoking Status: Never smoker Past Alcohol Use History: None Reported Past Drug Use History: None Reported General Exam Limitations: no limitations General appearance: alert, in no apparent distress Head exam: Present: atraumatic, normocephalic, normal inspection Eye exam: Present: normal appearance, PERRL, EOMI. Absent: scleral icterus, conjunctival injection, periorbital swelling ENT exam: Present: normal exam, normal oropharynx, mucous membranes moist Neck exam: Present: normal inspection, full ROM. Absent: tenderness, meningismus, lymphadenopathy Respiratory exam: Present: normal lung sounds bilaterally. Absent: respiratory distress, wheezes, rales, rhonchi, stridor Cardiovascular Exam: Present: regular rate, normal rhythm, normal heart sounds. Absent: systolic murmur, diastolic murmur, rubs, gallop, clicks GI/Abdominal exam: Present: soft, normal bowel sounds. Absent: distended, tenderness, guarding, rebound, rigid Neurological exam: Present: alert, oriented X3, CN II-XII intact, reflexes normal. Absent: motor sensory deficit Skin exam: Present: warm, dry, intact, normal color. Absent: rash Course Vital Signs 05/28/22 05:59 Temperature 98 F Pulse Rate 89 Respiratory 16 Rate Blood Pressure 148/93 O2 Sat by Pulse 98 Oximetry Medical Decision Making - Medical Decision Making X-ray does show mild constipation, labwork and otherwise unremarkable. Patient was hydrated, given antiemetics itself improved. Patient will be discharged to discharge parameters were discussed. - Lab Data Result diagrams: 05/28/22 06:29 05/28/22 06:30 Lab Results 05/28/22 05/28/22 05/28/22 Range/Units 06:29 06:29 06:30 WBC 8.3 (3.8-10.6) k/uL RBC 5.11 (4.30-5.90) m/uL Hgb 15.1 (13.0-17.5) gm/dL Hct 45.3 (39.0-53.0) % MCV 88.7 (80.0-100.0) fL MCH 29.5 (25.0-35.0) pg MCHC 33.2 (31.0-37.0) g/dL RDW 12.7 (11.5-15.5) % Plt Count 221 (150-450) k/uL MPV 7.8 Neutrophils % 71 % Lymphocytes % 21 % Monocytes % 6 % Eosinophils % 1 % Basophils % 1 % Neutrophils # 5.9 (1.3-7.7) k/uL Lymphocytes # 1.7 (1.0-4.8) k/uL Monocytes # 0.5 (0-1.0) k/uL Eosinophils # 0.1 (0-0.7) k/uL Basophils # 0.0 (0-0.2) k/uL Sodium 137 (137-145) mmol/L Potassium 3.7 (3.5-5.1) mmol/L Chloride 102 (98-107) mmol/L Carbon Dioxide 23 (22-30) mmol/L Anion Gap 12 mmol/L BUN 11 (9-20) mg/dL Creatinine 0.67 (0.66-1.25) mg/dL Est GFR (CKD-EPI)AfAm >90 (>60 ml/min/1.73 sqM) Est GFR (CKD-EPI)NonAf >90 (>60 ml/min/1.73 sqM) Glucose 134 H (74-99) mg/dL Calcium 9.1 (8.4-10.2) mg/dL Total Bilirubin 0.9 (0.2-1.3) mg/dL AST 26 (17-59) U/L ALT 22 (4-49) U/L Alkaline Phosphatase 64 (38-126) U/L Total Protein 7.0 (6.3-8.2) g/dL Albumin 4.6 (3.5-5.0) g/dL Lipase 80 (23-300) U/L Urine Color Yellow Urine Appearance Clear (Clear) Urine pH 5.0 (5.0-8.0) Ur Specific [place] 1.020 (1.001-1.035) Urine Protein Trace H (Negative) Urine Glucose (UA) Negative (Negative) Urine Ketones 1+ H (Negative) Urine Blood Negative (Negative) Urine Nitrite Negative (Negative) Urine Bilirubin Negative (Negative) Urine Urobilinogen <2.0 (<2.0) mg/dL Ur Leukocyte Esterase Negative (Negative) Coronavirus (PCR) (Not Detectd) 05/28/22 Range/Units 06:57 WBC (3.8-10.6) k/uL RBC (4.30-5.90) m/uL Hgb (13.0-17.5) gm/dL Hct (39.0-53.0) % MCV (80.0-100.0) fL MCH (25.0-35.0) pg MCHC (31.0-37.0) g/dL RDW (11.5-15.5) % Plt Count (150-450) k/uL MPV Neutrophils % % Lymphocytes % % Monocytes % % Eosinophils % % Basophils % % Neutrophils # (1.3-7.7) k/uL Lymphocytes # (1.0-4.8) k/uL Monocytes # (0-1.0) k/uL Eosinophils # (0-0.7) k/uL Basophils # (0-0.2) k/uL Sodium (137-145) mmol/L Potassium (3.5-5.1) mmol/L Chloride (98-107) mmol/L Carbon Dioxide (22-30) mmol/L Anion Gap mmol/L BUN (9-20) mg/dL Creatinine (0.66-1.25) mg/dL Est GFR (CKD-EPI)AfAm (>60 ml/min/1.73 sqM) Est GFR (CKD-EPI)NonAf (>60 ml/min/1.73 sqM) Glucose (74-99) mg/dL Calcium (8.4-10.2) mg/dL Total Bilirubin (0.2-1.3) mg/dL AST (17-59) U/L ALT (4-49) U/L Alkaline Phosphatase (38-126) U/L Total Protein (6.3-8.2) g/dL Albumin (3.5-5.0) g/dL Lipase (23-300) U/L Urine Color Urine Appearance (Clear) Urine pH (5.0-8.0) Ur Specific [place] (1.001-1.035) Urine Protein (Negative) Urine Glucose (UA) (Negative) Urine Ketones (Negative) Urine Blood (Negative) Urine Nitrite (Negative) Urine Bilirubin (Negative) Urine Urobilinogen (<2.0) mg/dL Ur Leukocyte Esterase (Negative) Coronavirus (PCR) Not Detected (Not Detectd) Disposition Clinical Impression: Constipation, Nausea & vomiting Disposition: HOME SELF-CARE Condition: Stable Instructions (If sedation given, give patient instructions): Acute Nausea and Vomiting (ED) Additional Instructions: Please return to the Emergency Department if symptoms worsen or any other concerns. Is patient prescribed a controlled substance at d/c from ED?: No Referrals: Ramon Mixon MD [Primary Care Provider] - 1-2 days Time of Disposition: 07:50
[2022-05-28 07:51] VITALS: BP 140/76
[2022-05-28] MEDS ORDERED: bisacodyL 5 MG TABLET.DR PO STA (08:04)
== END 2022-05-28 08:11 | disposition home or self-care (01) ==
LOC: EC 05:58
DX: R11.2 Nausea with vomiting, unspecified (principal); K59.00 Constipation, unspecified; Z20.822 Contact with and (suspected) exposure to COVID-19; Z88.0 Allergy status to penicillin
CPT/HCPCS: 36415; 80053; 83690; 85025; 81003; 87635; 74018; 99284; 96374; 96375; 96361; J1200; J2765; J1885

== ENCOUNTER → 2023-09-15 | Outpatient (CLI) | payer MEDICARE, OTHER ==
[~2023-09-15] MED LIST: REGADENOSON 0.4 MG/5 ML SYRINGE IV PRN
--- NOTE | 2023-09-15 11:25 | CA ---
Transthoracic Echo Report Name: Booker Kenney Age: 67 Gender: M : 1955 Exam Date: 09/15/2023 08:32 Exam Location: [place] Echo Ht (in): 73 Wt (lb): 185 Ordering Physician: Ramon Mixon MD Attending/Referring Phys: Amparo Mahoney [facility] Building Construction Teacher Tyra Luis [facility] Procedure CPT: Indications: R07.9 CHEST PAIN Cardiac Hx: Technical Quality: Fair Contrast 1: Total Dose (mL): Contrast 2: Total Dose (mL): MEASUREMENTS (Male / Female) Normal Values 2D ECHO LV Diastolic Diameter PLAX 4.5 cm 4.2 - 5.9 / 3.9 - 5.3 cm LV Systolic Diameter PLAX 3.4 cm IVS Diastolic Thickness 0.9 cm 0.6 - 1.0 / 0.6 - 0.9 cm LVPW Diastolic Thickness 0.9 cm 0.6 - 1.0 / 0.6 - 0.9 cm LV Relative Wall Thickness 0.4 LVOT Diameter 2.0 cm LV Diastolic Volume MOD BP 64.2 cm??? 67 - 155 / 56 - 104 cm??? LV Systolic Volume MOD BP 34.5 cm??? 22 - 58 / 19 - 49 cm??? LV Ejection Fraction MOD BP 46.2 % >= 55 % LV Cardiac Index MOD BP 1010.3 cm???/min???m??? LV Diastolic Volume MOD 4C 75.7 cm??? LV Systolic Volume MOD 4C 35.5 cm??? LV Ejection Fraction MOD 4C 53.1 % LV Cardiac Index MOD 4C 1368.9 cm???/min???m??? LV Diastolic Length 4C 7.6 cm LV Systolic Length 4C 6.3 cm LV Diastolic Volume MOD 2C 53.9 cm??? LV Systolic Volume MOD 2C 31.4 cm??? LV Ejection Fraction MOD 2C 41.8 % LV Cardiac Index MOD 2C 766.7 cm???/min???m??? LV Diastolic Length 2C 7.7 cm LV Systolic Length 2C 6.9 cm Ascending Aorta Diameter 3.3 cm M-MODE Aortic Root Diameter MM 3.7 cm LA Systolic Diameter MM 3.9 cm LA Ao Ratio MM 1.1 AV Cusp Separation MM 2.4 cm DOPPLER AV Peak Velocity 99.5 cm/s AV Peak Gradient 4.0 mmHg AV Mean Velocity 80.4 cm/s AV Mean Gradient 2.7 mmHg AV Velocity Time Integral 18.9 cm LVOT Peak Velocity 91.8 cm/s LVOT Peak Gradient 3.4 mmHg LVOT Velocity Time Integral 17.9 cm LVOT Stroke Volume 58.6 cm??? LVOT Stroke Volume Index 28.1 ml/m??? LVOT Cardiac Index 1996.1 cm???/min???m??? AV Area Cont Eq vti 3.1 cm??? AV Area Cont Eq pk 3.0 cm??? Mitral E Point Velocity 52.3 cm/s Mitral A Point Velocity 69.4 cm/s Mitral E to A Ratio 0.8 MV Deceleration Time 337.4 ms LV E' Lateral Velocity 9.1 cm/s Mitral E to LV E' Lateral Ratio 5.7 LV E' Septal Velocity 5.6 cm/s Mitral E to LV E' Septal Ratio 9.4 TR Peak Velocity 143.4 cm/s TR Peak Gradient 8.2 mmHg Right Atrial Pressure 3.0 mmHg Pulmonary Artery Systolic Pressu 11.2 mmHg Right Ventricular Systolic Press 11.2 mmHg FINDINGS Left Ventricle Left ventricular wall thickness normal. Septal hypertrophy. Left ventricular cavity size normal. Low normal left ventricular systolic function. Left ventricular ejection fraction is estimated at 50%. Right Ventricle Right ventricle at upper limits of normal. Right Atrium Mild right atrial dilatation. Left Atrium Normal left atrial size. Mitral Valve Structurally normal mitral valve. Trace to mild mitral regurgitation. Aortic Valve Trileaflet aortic valve. No aortic valve stenosis or regurgitation. Tricuspid Valve Structurally normal tricuspid valve. Trace tricuspid regurgitation. Pulmonic Valve Pulmonic valve not well visualized. Trace pulmonic regurgitation. Pericardium Minimal pericardial effusion (normal variant). Aorta Normal size aortic root and proximal ascending aorta. CONCLUSIONS Low normal LV systolic function. EF is 50% Previewed by: Dr. Tomás Brunson MD (Electronically Signed) Final Date: 15 September 2023 11:24
--- NOTE | 2023-09-15 12:53 | CA ---
Lexiscan Nuclear Stress Test Report Name: Booker Kenney Exam Date: 09/15/2023 09:53 Exam Location: [place] Stress Ht (in): 73 Wt (lb): 185 BSA: 2.08 Ordering Phys: Ramon Mixon MD Referring Phys: Amparo Mahoney Technologist: Pasquale Blanton Age: 67 Gender: M : 1955 Procedure CPT: Indications: R07.9 CHEST PAIN ICD-10 Codes: Patient History: Medications: IBUPROFEN, NORCO, XANAX, LIPITOR, FLEREIVAL, ZYRTEC, ZOFRAN, ALBUTEROL Meds past 24 hrs: Pretest Chest Pain: STRESS TEST Lexiscan Protocol Exercise Duration (min:sec): 02:[address] Depressions (mm): Angina Score: Mckeon Score: Resting HR (bpm): 64 Peak HR (bpm): 99 Resting BP (mmHg): 115 / 75 Peak BP (mmHg): 130 / 63 MPHR: 154 Target HR: 131 % MPHR: 64 METS: 1.0 Total Dose: Peak Dose: Atropine: Double Product: 10455 BP Response: Stress Termination: PROTOCOL COMPLETE Stress Symptoms: NO SYMPTOMS Stress Summary: ECG ANALYSIS Resting ECG: Stress ECG: CONCLUSIONS Nonspecific EKG changes in response to Lexiscan Please follow-up on the Cardiolite portion Dr. Tomás Brunson MD (Electronically Signed) Final Date: 15 September 2023 12:52
--- NOTE | 2023-09-20 08:51 | NM ---
EXAMINATION TYPE: NM stress lexiscan cardiolite DATE OF EXAM: 09/15/2023 COMPARISON: NONE CLINICAL INDICATION: Male, 67 years old with history of R07.9 CHEST PAIN; TECHNIQUE: After the intravenous administration of 9.99 mCi Tc 99m Sestamibi - Cardiolite resting SP ECT images acquired 48 minutes post injection. The patient received 0.4mg Lexiscan, 24.8 mCi Tc 99m Sestamibi - Stress images obtained [address] injection FINDINGS: Review of stress and rest SPECT images demonstrates fixed perfusion defect especially along the mid t o basal inferior and inferoseptal wall. No discrete reversibility is seen. Gated analysis shows chet l wall motion with an estimated left ventricular ejection fraction of 65n %. TID is calculated at 0. 91, within normal limits. IMPRESSION: 1. Fixed defect involving the inferior and inferoseptal mid to basal wall. Findings could represent o ld infarct versus diaphragmatic attenuation artifact. Clinically correlate. The latter is favored giv en the appearance of the polar maps. 2. No discrete reversibility is seen.
== END | disposition home or self-care (01) ==
LOC: RADNMMAIN 07:49
PROVIDERS: ATTEND Family Medicine
DX: I49.9 Cardiac arrhythmia, unspecified (principal); R61 Generalized hyperhidrosis; R42 Dizziness and giddiness; R07.9 Chest pain, unspecified
CPT/HCPCS: 93017; 93306; 78452; A9500; J2785

== ENCOUNTER → 2023-10-01 | Outpatient (CLI) | payer MEDICARE, OTHER ==
--- NOTE | 2023-10-08 17:24 | P.HOLTER ---
48 Hour Holter monitor note: Patient wore a Holter monitor for 48 hrs from 10/01/23 through 10/03/23. Findings: Patient's baseline heart rate was normal sinus rhythm. There were no signficant atrial fibrillation, atrial flutter, or ventricular tachycardia episodes. There were no significant pauses greater than 2 seconds. Patient's minimum heart rate was 55. Patient's maximum heart rate was 131. Patient's average heart rate was 82. There were 16 and patient activated events corresponding with sinus rhythm and occasional sinus tachycardia and PVCs. Patient activated events corresponded with shortness of breath, back pain, dizziness, leg pain and stiff neck There were occasional PACs and PVCs which were asymptomatic. PVC burden 3.1% Conclusions: 48 hour Holter monitor showing normal sinus rhythm with frequent PACs and PVCs. Patient activated events corresponded with normal sinus rhythm. 3.1% PVC burden
--- NOTE | 2023-10-12 09:22 | HM ---
48 Hour Holter monitor note: Patient wore a Holter monitor for 48 hrs from 10/01/23 through 10/03/23. Findings: Patient's baseline heart rate was normal sinus rhythm. There were no significant atrial fibrillation, atrial flutter, or ventricular tachycardia episodes. There were no significant pauses greater than 2 seconds. Patient's minimum heart rate was 55. Patient's maximum heart rate was 131. Patient's average heart rate was 82. There were 16 and patient activated events corresponding with sinus rhythm and occasional sinus tachycardia and PVCs. Patient activated events corresponded with shortness of breath, back pain, dizziness, leg pain and stiff neck There were occasional PACs and PVCs which were asymptomatic. PVC burden 3.1% Conclusions: 48 hour Holter monitor showing normal sinus rhythm with frequent PACs and PVCs. Patient activated events corresponded with normal sinus rhythm. 3.1% PVC burden. MTDD
== END | disposition home or self-care (01) ==
LOC: RADECHMAIN 07:53
PROVIDERS: ATTEND Family Medicine
DX: I49.9 Cardiac arrhythmia, unspecified (principal); R61 Generalized hyperhidrosis; R07.9 Chest pain, unspecified; R42 Dizziness and giddiness
CPT/HCPCS: 93225; 93226

== ENCOUNTER → 2023-10-12 | Outpatient (CLI) | payer MEDICARE, OTHER ==
[2023-10-12 12:23] LABS: African American GFR (CKD) >90 (>60 ml/min/1.73 sqM); Blood Urea Nitrogen 12 mg/dL (9-20); Non-African American GFR(CKD) >90 (>60 ml/min/1.73 sqM)
--- NOTE | 2023-10-14 15:19 | CT ---
EXAMINATION TYPE: CT chest wo/w con CT DLP: 1024 mGycm, Automated exposure control for dose reduction was used. DATE OF EXAM: 10/12/2023 1:26 PM COMPARISON: None. CLINICAL INDICATION:Male, 67 years old with history of J43.9 EMPHYSEMA J68.9 [employer] LUNG; PHH, Emphysema, chemical workers lung TECHNIQUE: Multiple axial images were obtained through the chest, both without and with IV contrast. Sagittal and coronal reformats were created for review. Contrast used:100 mL of Isovue 300 with IV Contrast (None if empty) Oral contrast used: (None if empty) FINDINGS: LUNGS/ PLEURA: Minimal linear opacities towards the lung bases, likely scarring or subsegmental atele ctasis. No consolidation, pleural effusion, or pneumothorax. No sizable nodule or mass. AIRWAY: Central airways are patent. LOWER NECK: No significant findings. MEDIASTINUM: No gross evidence of adenopathy. HEART: Normal heart size. Mild coronary artery calcification. No appreciable pericardial effusion. VASCULATURE: Mild atherosclerotic calcifications of the aorta and branches. Ascending aorta is 3 CM, descending is 2.4 CM. Aorta is considered normal in size. Pulmonary trunk measures 2.5 CM. Pulmonary trunk is normal in size. SOFT TISSUES/LYMPH NODES: Unremarkable soft tissues. No axillary adenopathy. UPPER ABDOMEN: No significant findings. Suspect duodenal diverticulum, partially seen. MUSCULOSKELETAL: No acute osseous abnormalities. Mild to moderate disc degeneration changes are prese nt throughout the thoracolumbar spine. IMPRESSION: No acute or significant abnormality in the chest.
== END | disposition home or self-care (01) ==
LOC: RADCTMAIN 11:24
PROVIDERS: ATTEND Family Medicine
DX: J43.9 Emphysema, unspecified (principal); J68.9 Unspecified respiratory condition due to chemicals, gases, fumes and vapors
CPT/HCPCS: 82565; 84520; 71270; 36415; Q9967